=== PATIENT | male | born 1965 | race Caucasian/White ===

== ENCOUNTER 2022-02-13 17:09 | Observation (INO) | payer SELFPAY ==
[2022-02-13] MEDS ORDERED: Ondansetron ODT 4 MG TAB SL PRN (19:15)
[2022-02-13] MEDS ORDERED: Ondansetron PF 4 MG/2 ML Vial IVP PRN (19:15)
[2022-02-13 19:44] VITALS: BMI 50.5
[2022-02-13] MEDS ORDERED: hydrALAZINE 20 MG/ML VIAL SLOW IVP PRN (21:05)
[2022-02-13] MEDS ORDERED: Acetaminophen 325 MG TAB PO PRN (21:05)
[2022-02-13] MEDS ORDERED: Acetaminophen 650 MG Suppository PR PRN (21:05)
[2022-02-13] MEDS ORDERED: Melatonin 3 MG TAB PO PRN (21:11)
[2022-02-14 02:16] LABS: SARS-CoV-2 PCR by NAA Not Detected (NotDetected)
[2022-02-14] MEDS: Aspirin 81 mg Enteric Coated Tablet PO SCH (08:23)
[2022-02-14] MEDS ORDERED: Atorvastatin Calcium 40 MG TAB PO SCH (21:00)
[2022-02-14] MEDS ORDERED: Enoxaparin Sodium 40 MG/0.4 ML SYRINGE SC SCH (21:00)
[2022-02-15 05:34] LABS: #Eosinphils 0.2 thou/uL (0.0-0.7); #Lymphocytes 1.4 thou/uL (1.20-3.40); #Monocytes 0.7 thou/uL (0.11-0.59); #Neutrophils 4.8 thou/uL (1.40-6.50); %Basophils 0.3 % (0.0-1.0); %Eosinophils 2.6 % (0.0-10.0); %Monocytes 9.8 % (0.0-10.0); %Neutrophils 67.4 % (42.0-75.0); Hemoglobin 13.4 g/dL (14.0-18.0); Mean Corpuscular HGB CONC 32.3 g/dL (32.0-36.0); Mean Corpuscular Hemoglobin 31.9 pg (27.0-31.0); Mean Corpuscular Volume 98.9 fL (78.0-98.0); Mean Platelet Volume 8.7 fL (7.4-10.4); Platelet Count 184 thou/uL (130-400); RBC Distribution Width 13.5 % (11.5-14.5); Red Blood Cell (RBC) Count 4.19 mill/uL (4.70-6.10); White Blood Cell (WBC) Count 7.1 thou/uL (4.8-10.8)
[2022-02-15 05:40] LABS: Hemoglobin A1c 5.6 % (4.0-6.0)
[2022-02-15 05:55] LABS: ALT (SGPT) 22 U/L (8-55); AST (SGOT) 18 U/L (5-34); Albumin 3.6 g/dL (3.5-5.0); Alkaline Phosphatase 49 U/L (40-110); Anion Gap 12 mmol/L (10-20); BUN (Urea Nitrogen) 8 mg/dL (8.4-25.7); Bilirubin, Total 0.5 mg/dL (0.2-1.2); Calc. Creatinine Clearance 246 mL/min (70-130); Calcium 8.5 mg/dL (7.8-10.44); Carbon Dioxide 26 mmol/L (22-29); Cardiac Risk 4.4 (Less than 4.5); Chloride 104 mmol/L (98-107); Cholesterol 191 mg/dl (< 200 Desired); Glucose 130 mg/dL (70-105); HDL Cholesterol 43 mg/dL (>60 Neg Risk); LDL Cholesterol, Calculated 112 mg/dL; Potassium 3.8 mmol/L (3.5-5.1); Protein, Total 6.6 g/dL (6.0-8.3); Sodium 138 mmol/L (136-145); Triglycerides 180 mg/dL (Less than 150)
[2022-02-15] MEDS: Aspirin 81 mg Enteric Coated Tablet PO SCH (08:01)
[2022-02-15] MEDS ORDERED: Amlodipine 5 MG TAB PO SCH (09:00)
[2022-02-15 16:08] VITALS: BP 170/98; TEMP 97.1
== END 2022-02-15 17:35 | disposition home or self-care (01) ==
LOC: NEURO 18:25
PROVIDERS: ADMIT Family Medicine; ATTEND Family Medicine
DX: G45.9 Transient cerebral ischemic attack, unspecified (principal); I16.0 Hypertensive urgency; I11.9 Hypertensive heart disease without heart failure; J44.9 Chronic obstructive pulmonary disease, unspecified; F17.290 Nicotine dependence, other tobacco product, uncomplicated; K76.0 Fatty (change of) liver, not elsewhere classified; F10.10 Alcohol abuse, uncomplicated; R06.2 Wheezing; I37.1 Nonrheumatic pulmonary valve insufficiency; E66.01 Morbid (severe) obesity due to excess calories; Z68.43 Body mass index [BMI] 50.0-59.9, adult; Z20.822 Contact with and (suspected) exposure to COVID-19
CPT/HCPCS: 0439T; 36415; 80053; 80061; 83036; 84443; 85025; 93306; 93880; 96372; G0378; J1650; U0003; U0005

== ENCOUNTER 2022-04-17 09:33 | Outpatient (CLI) | payer OTHER | END 2022-04-17 09:34 | disposition home or self-care (01) | LOC: BICRAD 09:33 | PROVIDERS: ATTEND Internal Medicine | DX: Z02.71 Encounter for disability determination (principal) ==